=== PATIENT | female | born 1995 ===

== ENCOUNTER 2018-11-01 19:09 | Emergency (ER) | payer OTHER ==
[~2018-11-01] VITALS: Ht 157.5 cm; Wt 87.1 kg
[2018-11-01 19:11] VITALS: Ht 157.5 cm; Wt 87.1 kg
[2018-11-01 22:12] VITALS: BP 129/59
== END 2018-11-01 22:12 | disposition home or self-care (01) ==
LOC: ED 19:09
DX: S61.230A Puncture wound without foreign body of right index finger without damage to nail, initial encounter (principal); W46.0XXA Contact with hypodermic needle, initial encounter; Y93.89 Activity, other specified; Y92.89 Other specified places as the place of occurrence of the external cause; Y99.8 Other external cause status
CPT/HCPCS: 90715